=== PATIENT | female | born 1980 | race Caucasian/White ===

== ENCOUNTER → 2019-03-11 11:03 | Emergency (ER) | payer BC ==
[2019-03-11 11:53] LABS: ABS Basophils 0.1 10^3/ul (0-0.2); ABS Eosinophils 0.2 10^3/ul (0-0.6); ABS Monocytes 0.5 10^3/ul (0-0.8); ABS Neutrophils 4.2 10^3/ul (1.5-7.7); Hematocrit 42 % (35-47); Hemoglobin 14.3 g/dL (12.0-16.0); Lymphocyte % 37.9 %; Mean Corpuscular HGB Conc 34 g/dL (31-36); Mean Corpuscular Hemoglobin 31 pg (27-31); Mean Corpuscular Volume 90 fL (80-97); Nucleated Red Blood Cells % 0.1; Platelet Count 192 10^3/uL (150-450); Red Blood Count 4.68 10^6 /uL (3.70-4.87); Red Cell Distribution Width 13 % (10-15); White Blood Count 7.9 10^3/uL (3.5-10.8)
[2019-03-11 11:59] LABS: INR 1.06 (0.82-1.09)
[2019-03-11 12:17] LABS: Albumin 4.6 g/dL (3.2-5.2); Albumin/Globulin Ratio 1.8 (1-3); BUN/Creatinine Ratio 19.4 (8-20); Calcium 9.5 mg/dL (8.6-10.3); EGFR African American 131.8 (>60); EGFR Non-African American 108.9 (>60); Globulin 2.6 g/dL (2-4); Potassium 3.9 mmol/L (3.5-5.0); Total Bilirubin 0.5 mg/dL (0.2-1.0); Total Protein 7.2 g/dL (6.4-8.9)
--- NOTE | 2019-03-11 13:40 | ED ---
Dizziness - HPI Summary HPI Summary: The pt is a 38 yr old female presenting to [facility] c/o of dizziness beginning 2 days [employer]. She reports dizziness initially onset 1 month ago that has worsened over the last week. Sx aggravated by motion, heat, and standing up. She also reports nausea, headache, clammy and cold hands, numb cheeks, diarrhea, feeling off balance, dehydration, feeling foggy, abd pain, and tingling but denies any CP, SOB, rash, or edema. - History Of Current Complaint Chief Complaint: EDGeneral Stated Complaint: DIZZY FOR A FEW MONTHS/NAUSEA/CHEST PRESS PER PT Time Seen by Provider: 03/11/19 13:15 Hx Obtained From: Patient Onset/Duration: Still Present Timing: Weeks Severity Initially: Moderate Severity Currently: Moderate Character: Dizzy Aggravating Factor(s): Position Change - Standing up, Change In Head Position - movement of head Alleviating Factor(s): Nothing Associated Signs And Symptoms: Positive: Nausea, Diarrhea, Other: - Positive - clammy and cold hands, numb cheeks, feeling off balance, dehydration, feeling foggy, tingling, abd pain, unsteadyness, and headache - Allergies/Home Medications Allergies/Adverse Reactions: Allergies Allergy/AdvReac Type Severity Reaction Status Date / Time Penicillins Allergy Hives Verified 03/11/19 11:15 Home Medications: Home Medications NK [No Home Medications Reported] 03/11/19 [History Confirmed 03/11/19] PMH/Surg Hx/FS Hx/Imm Hx Previously Healthy: Yes Endocrine/Hematology History: Denies: Hx Diabetes, Hx Thyroid Disease Cardiovascular History: Denies: Hx Hypertension Respiratory History: Denies: Hx Asthma, Hx Chronic Obstructive Pulmonary Disease (COPD) GI History: Denies: Hx Ulcer Sensory History: Denies: Hx Legally Blind, Hx Deafness Opthamlomology History: Denies: Hx Legally Blind EENT History: Denies: Hx Deafness - Surgical History Surgery Procedure, Year, and Place: wisdom teeth extraction Infectious Disease History: No Infectious Disease History: Denies: Hx Hepatitis, Hx Human Immunodeficiency Virus (HIV), Traveled Outside the [place] in Last 30 Days - Family History Known Family History: Positive: Cardiac Disease - Social History Alcohol Use: Weekly Hx Substance Use: No Substance Use Type: Reports: None Hx Tobacco Use: No Smoking Status (MU): Never Smoked Tobacco Review of Systems Positive: Other - positive - clammy hand, numb cheeks, dehydration, feeling foggy, feelinf off balance Negative: Chest Pain Negative: Shortness Of Breath Positive: Abdominal Pain, Diarrhea, Nausea Negative: Edema Negative: Rash Neurological: Other - positive - tingling Positive: Headache All Other Systems Reviewed And Are Negative: Yes Physical Exam - Summary Physical Exam Summary: Constitutional: Well-developed, Well-nourished, Alert. (-) Distressed Skin: Warm, Dry HENT: Normocephalic; Atraumatic Eyes: Conjunctiva normal Neck: Musculoskeletal ROM normal neck. (-) JVD, (-) Stridor, (-) Tracheal deviation Cardio: Rhythm regular, rate normal, Heart sounds normal; Intact distal pulses; The pedal pulses are 2+ and symmetric. Radial pulses are 2+ and symmetric. (-) Murmur Pulmonary/Chest wall: Effort normal. (-) Respiratory distress, (-) Wheezes, (-) Rales Abd: Soft, (-) tenderness, (-) Distension, (-) Guarding, (-) Rebound Musculoskeletal: (-) Edema Lymph: (-) Cervical adenopathy Neuro: Alert, Oriented x3 Psych: Mood and affect Normal Triage Information Reviewed: Yes Vital Signs On Initial Exam: Initial Vitals Temp Pulse Resp BP Pulse Ox 98.4 F 109 16 150/86 100 03/11/19 11:12 03/11/19 11:12 03/11/19 11:12 03/11/19 11:12 03/11/19 11:12 Vital Signs Reviewed: Yes Diagnostics - Vital Signs Vital Signs Temp Pulse Resp BP Pulse Ox 03/11/19 11:12 98.4 F 109 16 150/86 100 - Laboratory Lab Results: Lab Results 03/11/19 03/11/19 03/11/19 Range/Units 11:42 11:42 11:42 WBC 7.9 (3.5-10.8) 10^3/uL RBC 4.68 (3.70-4.87) 10^6 /uL Hgb 14.3 (12.0-16.0) g/dL Hct 42 (35-47) % MCV 90 (80-97) fL MCH 31 (27-31) pg MCHC 34 (31-36) g/dL RDW 13 (10-15) % Plt Count 192 (150-450) 10^3/uL MPV 10.0 (7.4-10.4) fL Neut % (Auto) 53.2 % Lymph % (Auto) 37.9 % Jay % (Auto) 6.2 % Eos % (Auto) 2.0 % Baso % (Auto) 0.7 % Absolute Neuts (auto) 4.2 (1.5-7.7) 10^3/ul Absolute Lymphs (auto) 3.0 (1.0-4.8) 10^3/ul Absolute Monos (auto) 0.5 (0-0.8) 10^3/ul Absolute Eos (auto) 0.2 (0-0.6) 10^3/ul Absolute Basos (auto) 0.1 (0-0.2) 10^3/ul Absolute Nucleated RBC 0.0 10^3/ul Nucleated RBC % 0.1 INR (Anticoag Therapy) 1.06 (0.82-1.09) Sodium 138 (135-145) mmol/L Potassium 3.9 (3.5-5.0) mmol/L Chloride 104 (101-111) mmol/L Carbon Dioxide 25 (22-32) mmol/L Anion Gap 9 (2-11) mmol/L BUN 12 (6-24) mg/dL Creatinine 0.62 (0.51-0.95) mg/dL Est GFR ( Amer) 131.8 (>60) Est GFR (Non-Af Amer) 108.9 (>60) BUN/Creatinine Ratio 19.4 (8-20) Glucose 108 H (70-100) mg/dL Calcium 9.5 (8.6-10.3) mg/dL Total Bilirubin 0.50 (0.2-1.0) mg/dL AST 14 (13-39) U/L ALT 9 (7-52) U/L Alkaline Phosphatase 31 L (34-104) U/L Troponin I 0.00 (<0.04) ng/mL Total Protein 7.2 (6.4-8.9) g/dL Albumin 4.6 (3.2-5.2) g/dL Globulin 2.6 (2-4) g/dL Albumin/Globulin Ratio 1.8 (1-3) Result Diagrams: 03/11/19 11:42 03/11/19 11:42 Lab Statement: Any lab studies that have been ordered have been reviewed, and results considered in the medical decision making process. - Radiology CXR Radiology Interpretation Completed By: Radiologist Summary of Radiographic Findings: No acute cardiopulmonary process by radiograph. ED physician has reviewed this report. - EKG 1107 Cardiac Rate: Tachycardia - 103bpm EKG Rhythm: Sinus Tachycardia ST Segment: Non-Specific Ectopy: None Summary of EKG Findings: EKG at 1107 shows sinus tachycardia at 107bpm with ST depression in lead III and aVF. Nonspecific EKG with artifact obscurity rate. Dizzy Course/Dx - Course Course Of Treatment: The pt is a 38 yr old female presenting to [facility] c/o of dizziness beginning 2 days [employer] CLAIM[employer]. She states that she has been feeling dizzy for the last month and has gotten worse this past week. She also mentions that her dizziness is aggravated by motion, heat, and standing up. She also reports nausea, headache, clammy and cold hands, numb cheeks, diarrhea, feeling off balance, dehydration, feeling foggy, abd pain, and tingling but denies any CP, SOB, rash, or edema. Physical exam was unremarkable. Test results with no significant abnormalities except for glucose @ 108 and alkaline phosphatase @ 31. A CXR reveals no acute cardiopulmonary process by radiograph. An EKG reveals sinus tachycardia at 107bpm with ST depression in lead III and aVF. Nonspecific EKG with artifact obscurity rate. The pt was diagnosed with dizziness, discharged home, and instructed to follow up with PCP within 3 days. The pt is stable and agreeable with this plan. - Diagnoses Provider Diagnoses: Dizziness Discharge - Sign-Out/Discharge Documenting (check all that apply): Patient Departure - discharge Patient Received Moderate/Deep Sedation with Procedure: No - Discharge Plan Condition: Stable Disposition: HOME Patient Education Materials: Dizziness (ED) Print Language: POLISH Referrals: Marci Toscano MD [Primary Care Provider] - 3 Days - Billing Disposition and Condition Condition: STABLE Disposition: Home - Attestation Statements Document Initiated by Scribe: Yes Documenting Scribe: Dontrell Gray Provider For Whom Scribe is Documenting (Include Credential): Leda Lawler MD Scribe Attestation: Dontrell Arechiga, scribed for Leda Chadwick MD on 03/11/19 at 1859. Scribe Documentation Reviewed: Yes Provider Attestation: The documentation as recorded by the scribe, Dontrell Gray accurately reflects the service I personally performed and the decisions made by me, Leda Lawler MD Status of Scribe Document: Viewed
[2019-03-11 15:23] VITALS: BP 137/96
[2019-03-11 15:46] LABS: TSH (Thyroid Stimulating Horm) 1.38 mcIU/mL (0.34-5.60)
== END | disposition home or self-care (01) ==
LOC: ED 11:03
DX: R42 Dizziness and giddiness (principal); R00.0 Tachycardia, unspecified; R11.0 Nausea; R51 Headache; R20.0 Anesthesia of skin; R19.7 Diarrhea, unspecified; R26.89 Other abnormalities of gait and mobility; R10.9 Unspecified abdominal pain; Z88.0 Allergy status to penicillin
CPT/HCPCS: 36415; 71046; 80053; 84443; 84484; 85025; 85610; 93005; 99282